=== PATIENT | male | born 1975 | race African-American/Black ===

== ENCOUNTER 2017-03-22 15:20 | Observation (INO) | payer MEDICAID ==
[2017-03-22] MEDS ORDERED: Metoprolol Tartrate 5 MG/5 ML SDV IVPUSH ONE (15:31)
[2017-03-22] MEDS ORDERED: Famotidine 20 MG/2 ML SDV IVPUSH ONE (15:31)
[2017-03-22] MEDS ORDERED: Sodium Chloride 0.9% 10 ML Syringe FLUSH PRN ×2 (15:31→18:32)
[2017-03-22] MEDS ORDERED: Aspirin 81 MG Tab.Chew CHEW ONE (15:31)
[2017-03-22] MEDS ORDERED: Ticagrelor 90 MG Tab PO ONE (15:31)
--- NOTE | 2017-03-22 15:31 | EDM.PDOC ---
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 heart Associated angina: with unstable angina Qualified Code(s): I25.110 - Atherosclerotic heart disease of [place] coronary artery with unstable angina pectoris COPD (chronic obstructive pulmonary disease) Qualifiers: COPD type: emphysema Emphysema type: panlobular Qualified Code(s): J43.1 - Panlobular emphysema - Problem List & Annotations (1) Chest pain SNOMED Code(s): 78664706 Code(s): R07.9 - CHEST PAIN, UNSPECIFIED Status: Acute Priority: High Current Visit: Yes Onset Date: ~03/22/17 Annotation/Comment:: Chest pain protocol initiated immediately upon the patient's arrival to the emergency room. Symptoms somewhat refractory to therapy with IV morphine required. Admit to observation status with initiation of standard rule out OR orders. Cardiology consultation depending on his clinical course. Note recent apparently negative outpatient Cardiolite stress test in November 2016 as above. Low threshold for possible heart catheterization secondary to his history of acute OR on 04/06/16. Nitro paste therapy initiated both for blood pressure control and cardiac prophylaxis Qualifiers: Chest pain type: other chest pain Qualified Code(s): R07.89 - Other chest pain; R07.8 - Other chest pain (2) Coronary artery disease SNOMED Code(s): 97484518 Code(s): I25.10 - ATHSCL HEART DISEASE OF [place] CORONARY ARTERY W/O ANG PCTRS Status: Chronic Priority: High Current Visit: Yes Onset Date: ~04/15 Annotation/Comment:: As above Qualifiers: Coronary Disease-Associated Artery/Lesion type: [place] artery [place] vs. transplanted heart: [place] heart Associated angina: with unstable angina Qualified Code(s): I25.110 - Atherosclerotic heart disease of [place] coronary artery with unstable angina pectoris (3) Hypertensive crisis SNOMED Code(s): 720981217 Code(s): I16.9 - HYPERTENSIVE CRISIS, UNSPECIFIED Status: Acute Priority : High Current Visit: Yes Onset Date: 03/22/17 Annotation/Comment:: Hypertensive crisis on arrival secondary to patient's medication noncompliance as above. Multiple doses of sublingual nitroglycerin, IV and oral Lopressor, IV hydralazine, and IV Normodyne required with improved blood pressure prior to admission. Sleep apnea is a likely component. Note positive family history for hemorrhagic CVA secondary to cerebral aneurysm as above. The patient was cautioned to keep his blood pressure under control with recommended MRA of the brain on an outpatient basis to rule out cerebral aneurysm secondary to his family history (4) COPD (chronic obstructive pulmonary disease) SNOMED Code(s): 47685631 Code(s): J44.9 - CHRONIC OBSTRUCTIVE PULMONARY DISEASE, UNSPECIFIED Status : Chronic Priority: Medium Current Visit: Yes Onset Date: ~03/22/17 Annotation/Comment:: COPD by chest x-ray with current probable bronchitic type symptoms and no evidence of pneumonia by chest x-ray. No previous PFTs with possible history of sleep apnea with apparent scheduled sleep study in one week by his history. Initiate IV Rocephin therapy for now with PFTs recommended once his cardiac status has been determined Qualifiers: COPD type: emphysema Emphysema type: panlobular Qualified Code(s): J43.1 - Panlobular emphysema (5) Caries SNOMED Code(s): 98757593 Code(s): K02.9 - DENTAL CARIES, UNSPECIFIED Status: Chronic Priority: Medium Current Visit: Yes Annotation/Comment:: Multiple caries as above. Follow-up with his dentist [place] advised. 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 CK index normal with mild change of his troponin I. Patient not on a statin with no direct evidence of rhabdomyolysis. Observe closely for now (7) Hyperuricemia SNOMED Code(s): 55380167 Code(s): E79.0 - HYPERURICEMIA W/O SIGNS OF INFLAM ARTHRIT AND TOPHACEOUS DIS Status: Acute Priority: Medium Current Visit: Yes Onset Date: Annotation/Comment:: Newly diagnosed with no previous history of gout attacks. Observe for now. Discharge patient on a heart healthy and uric acid diet with information to be provided at discharge (8) LFTs abnormal SNOMED Code(s): 569354637 Code(s): R79.89 - OTHER SPECIFIED ABNORMAL FINDINGS OF BLOOD CHEMISTRY Status: Acute Priority: Medium Current Visit: Yes Onset Date: 03/22/17 Annotation/Comment:: Mild LFTs elevation likely secondary to fatty liver. Lipid panel in the a.m. (9) Renal insufficiency SNOMED Code(s): 048148333, 681061136 Code(s): N28.9 - DISORDER OF KIDNEY AND URETER, UNSPECIFIED Status: Acute Priority: Medium Current Visit: Yes Onset Date: 03/22/17 Annotation/ Comment:: Newly diagnosed mild renal insufficiency. Observe for now (10) Tobacco abuse counseling SNOMED Code(s): 074174941, 843767666, 593503624 Code(s): Z71.6 - TOBACCO ABUSE COUNSELING Status: Chronic Priority: Medium Current Visit: Yes Annotation/Comment:: Tobacco cessation strongly encouraged with patient to be provided tobacco cessation information at time of discharge - Problem List Review Problem List Initiated/Reviewed/Updated: Yes - My Orders Last 24 Hours: My Active Orders 03/22/17 15:26 EKG Documentation Completion [RC] ASDIRECTED Oxygen Therapy, ED [RC] ASDIRECTED Chest 1V Frontal [CR] Stat Sodium Chloride 0.9% [Saline Flush] 10 ml FLUSH ASDIRECTED PRN Saline Lock Insert [OM.PC] Routine 03/22/17 15:31 Cardiac Monitoring [RC] . DIRECTED EKG Documentation Completion [RC] ASDIRECTED Oxygen Therapy, ED [RC] CONTINUOUS Peripheral IV Care [RC] . DIRECTED Pulse Oximetry [RC] CONTINUOUS Up With Assistance [RC] PFP Vital Signs [RC] PFP Sodium Chloride 0.9% [Saline Flush] 10 ml FLUSH ASDIRECTED PRN Obtain Past Medical Record [OM.PC] Urgent Peripheral IV Insertion Adult [OM.PC] Stat Resuscitation Status Stat 03/22/17 15:34 Nitroglycerin [Nitrostat] 0.4 mg SL ONETIME STA 03/22/17 16:00 Morphine 2 mg IVPUSH ONETIME ONE 03/22/17 17:00 Nitroglycerin [Nitro-Bid 2%] 0.5 gm TOP Q6H 03/22/17 Breakfast Nothing per Oral Now Diet [DIET] - Assessment/Plan Admission H&P: Please use this note as an admission H&P Last 24 Hours: My Active Orders 03/22/17 15:26 EKG Documentation Completion [RC] ASDIRECTED Oxygen Therapy, ED [RC] ASDIRECTED Chest 1V Frontal [CR] Stat Sodium Chloride 0.9% [Saline Flush] 10 ml FLUSH ASDIRECTED PRN Saline Lock Insert [OM.PC] Routine 03/22/17 15:31 Cardiac Monitoring [RC] . DIRECTED EKG Documentation Completion [RC] ASDIRECTED Oxygen Therapy, ED [RC] CONTINUOUS Peripheral IV Care [RC] . DIRECTED Pulse Oximetry [RC] CONTINUOUS Up With Assistance [RC] PFP Vital Signs [RC] PFP Sodium Chloride 0.9% [Saline Flush] 10 ml FLUSH ASDIRECTED PRN Obtain Past Medical Record [OM.PC] Urgent Peripheral IV Insertion Adult [OM.PC] Stat Resuscitation Status Stat 03/22/17 15:34 Nitroglycerin [Nitrostat] 0.4 mg SL ONETIME STA 03/22/17 16:00 Morphine 2 mg IVPUSH ONETIME ONE 03/22/17 17:00 Nitroglycerin [Nitro-Bid 2%] 0.5 gm TOP Q6H 03/22/17 Breakfast Nothing per Oral Now Diet [DIET] Assessment:: As above Plan: As above. Extensive precautions were given to the patient, who is in agreement with the treatment plan. The patient's condition is stable enough for observation status and general supervision.
[2017-03-22] MEDS ORDERED: Metoprolol Tartrate 50 MG Tab PO ONE (15:34)
[2017-03-22] MEDS: Nitroglycerin 0.4 MG Tab.SL SL STA ×2 (15:41→16:04)
[2017-03-22 15:59] LABS: CHLORIDE,CL 106 mmol/L (98-107); SODIUM,NA 140 mmol/L (136-145)
[2017-03-22] MEDS ORDERED: Nitroglycerin 0.4 MG Tab.SL SL ONE (15:59)
[2017-03-22] MEDS ORDERED: Morphine 10 MG/ML Syringe IVPUSH ONE (16:00)
[2017-03-22] MEDS ORDERED: Ondansetron 4 MG/2 ML SDV IVPUSH ONE (16:00)
[2017-03-22] MEDS: Sodium Chloride 0.9% 10 ML Syringe FLUSH PRN ×2 (16:06→17:33)
[2017-03-22] MEDS ORDERED: Labetalol 20 MG/4 ML Syringe IVPUSH ONE ×2 (16:15→16:58)
[2017-03-22] MEDS ORDERED: Nitroglycerin 2% Oint 1 GM UD Packet TOP SCH (17:00)
[2017-03-22] MEDS ORDERED: hydrALAZINE 20 MG/ML SDV IVPUSH ONE ×2 (17:28→21:36)
[2017-03-22] MEDS ORDERED: Temazepam 15 MG Cap PO PRN (18:32)
[2017-03-22] MEDS: hydrALAZINE 50 MG Tab PO SCH (19:52)
[2017-03-22] MEDS: Nicotine 21 MG/24 Hr Patch TRDERM SCH (20:59)
[2017-03-22] MEDS ORDERED: Nitroglycerin/D5W 25 MG/250 ML BOTTLE IV SCH (21:45)
[2017-03-22] MEDS: Ondansetron 4 MG/2 ML SDV IVPUSH PRN (22:14)
[2017-03-22] MEDS: Lisinopril 10 MG Tab PO SCH (22:15)
[2017-03-22] MEDS: Morphine 2 MG/ML Syringe IVPUSH PRN (22:17)
[2017-03-22] MEDS ORDERED: Gabapentin 300 MG Cap PO ONE (22:51)
[2017-03-23] MEDS: Morphine 2 MG/ML Syringe IVPUSH PRN (04:22)
[2017-03-23] MEDS: Ondansetron 4 MG/2 ML SDV IVPUSH PRN (04:22)
[2017-03-23] MEDS: Sodium Chloride 0.9% 10 ML Syringe FLUSH PRN ×2 (04:28→20:59)
[2017-03-23 07:52] LABS: CHLORIDE,CL 105 mmol/L (98-107); SODIUM,NA 139 mmol/L (136-145)
[2017-03-23] MEDS ORDERED: NIFEdipine 30 MG Tab.ER PO SCH (08:00)
[2017-03-23] MEDS: hydrALAZINE 50 MG Tab PO SCH ×2 (08:00→20:49)
[2017-03-23] MEDS: Gabapentin 300 MG Cap PO SCH ×3 (08:00→18:03)
[2017-03-23] MEDS: Methocarbamol 500 MG Tab PO SCH ×3 (08:01→18:03)
[2017-03-23] MEDS: Acetaminophen 325 MG Tab PO PRN ×2 (09:26→20:55)
[2017-03-23] MEDS ORDERED: hydrALAZINE 50 MG Tab PO ONE (09:36)
[2017-03-23] MEDS ORDERED: Aspirin 81 MG Tab.Chew PO ONE (09:37)
--- NOTE | 2017-03-23 10:15 | PCM.PN ---
- General Info Date of Service: 03/23/17 Admission Dx/Problem (Free Text): Chest pain. Hypertensive Crisis. Subjective Update: The patient reports chest pain resolved with nitroglycerin drip and no recurrence. Nursing reports blood pressure difficult to control overnight even on nitroglycerin drip and required multiple dose of IV Labetalol and IV Hydralazine in addition to oral metoprolol, oral hydralazine, and oral home medications Bystolic and Nimodipine. The patient complains of a mild headache this morning as well. - Review of Systems General: Reports: No Symptoms HEENT: Reports: no symptoms Pulmonary: Reports: other (Intermittent cough, improved from admission.) Cardiovascular: Reports: No Symptoms Gastrointestinal: Reports: No symptoms Genitourinary: Reports: no symptoms Musculoskeletal: Reports: no symptoms Skin: Reports: no symptoms Neurological: Reports: Headache (Mild) Psychiatric: Reports: no symptoms - Patient Data Vitals - most recent: Last Vital Signs Temp 36.8 C 03/23/17 10:00 Pulse 79 03/23/17 10:00 Resp 18 03/23/17 10:00 BP 172/106 H 03/23/17 10:00 Pulse Ox 100 03/23/17 10:00 Weight - most recent: 121.744 kg I&O - last 24 hours: Intake & Output 03/22/17 03/23/17 03/23/17 22:59 06:59 14:59 Intake Total 75 Balance 75 Lab Results last 24 hrs: Laboratory Results - last 24 hr 03/22/17 03/23/17 03/23/17 Range/Units 21:45 06:28 06:28 WBC 11.4 H (4.0-10.2) K/uL RBC 5.02 (4.33-5.41) M/uL Hgb 14.7 (13.1-16.8) g/dL Hct 42.5 (39.0-49.0) % MCV 84.7 (84.0-98.0) fL MCH 29.3 (28.2-33.3) pg MCHC 34.6 (31.7-36.0) g/dL RDW 13.1 (11.2-14.1) % Plt Count 226 (150-350) K/uL Neut % (Auto) 63.3 (45.0-80.0) % Lymph % (Auto) 24.3 (10.0-50.0) % [place] % (Auto) 10.6 (2.0-14.0) % Eos % (Auto) 1.4 (0.0-5.0) % Baso % (Auto) 0.4 (0.0-2.0) % Neut # (Auto) 7.20 H (1.40-7.00) K/uL Lymph # (Auto) 2.76 (0.50-3.50) K/uL Davidson # (Auto) 1.21 H (0.00-1.00) K/uL Eos # (Auto) 0.16 (0.00-0.50) K/uL Baso # (Auto) 0.05 (0.00-0.20) K/uL Sodium 139 (136-145) mmol/L Potassium 3.6 (3.5-5.1) mmol/L Chloride 105 (98-107) mmol/L Carbon Dioxide 23.7 (21.0-32.0) mmol/L BUN 11 (7-18) mg/dL Creatinine 1.16 (0.51-1.17) mg/dL Est Cr Clr Drug Dosing 90.12 mL/min Estimated GFR (MDRD) > 60 mL/min Glucose 130 H (74-106) mg/dL Hemoglobin A1c (4.3-5.7) % Calcium 9.0 (8.5-10.1) mg/dL Total Bilirubin 0.6 (0.2-1.0) mg/dL AST 31 (15-37) U/L ALT 45 (12-78) U/L Alkaline Phosphatase 103 (46-116) IU/L Creatine Kinase 839 H 642 H (26-308) U/L Creatine Kinase Index 0.3 0.3 (0.0-2.5) % CK-MB (CK-2) 2.20 2.00 (0.00-3.60) ng/mL Troponin I 0.028 0.035 (0.000-0.056) ng/mL Total Protein 7.2 (6.4-8.2) g/dL Albumin 3.9 (3.4-5.0) g/dL Triglycerides 137 (30-150) mg/dL Cholesterol 278 H (100-200) mg/dL LDL Cholesterol, Calc 212 H (0-100) mg/dL HDL Cholesterol 39 L (40-60) mg/dL 03/23/17 Range/Units 06:28 WBC (4.0-10.2) K/uL RBC (4.33-5.41) M/uL Hgb (13.1-16.8) g/dL Hct (39.0-49.0) % MCV (84.0-98.0) fL MCH (28.2-33.3) pg MCHC (31.7-36.0) g/dL RDW (11.2-14.1) % Plt Count (150-350) K/uL Neut % (Auto) (45.0-80.0) % Lymph % (Auto) (10.0-50.0) % [place] % (Auto) (2.0-14.0) % Eos % (Auto) (0.0-5.0) % Baso % (Auto) (0.0-2.0) % Neut # (Auto) (1.40-7.00) K/uL Lymph # (Auto) (0.50-3.50) K/uL [place] # (Auto) (0.00-1.00) K/uL Eos # (Auto) (0.00-0.50) K/uL Baso # (Auto) (0.00-0.20) K/uL Sodium (136-145) mmol/L Potassium (3.5-5.1) mmol/L Chloride (98-107) mmol/L Carbon Dioxide (21.0-32.0) mmol/L BUN (7-18) mg/dL Creatinine (0.51-1.17) mg/dL Est Cr Clr Drug Dosing mL/min Estimated GFR (MDRD) mL/min Glucose (74-106) mg/dL Hemoglobin A1c 6.1 H (4.3-5.7) % Calcium (8.5-10.1) mg/dL Total Bilirubin (0.2-1.0) mg/dL AST (15-37) U/L ALT (12-78) U/L Alkaline Phosphatase (46-116) IU/L Creatine Kinase (26-308) U/L Creatine Kinase Index (0.0-2.5) % CK-MB (CK-2) (0.00-3.60) ng/mL Troponin I (0.000-0.056) ng/mL Total Protein (6.4-8.2) g/dL Albumin (3.4-5.0) g/dL Triglycerides (30-150) mg/dL Cholesterol (100-200) mg/dL LDL Cholesterol, Calc (0-100) mg/dL HDL Cholesterol (40-60) mg/dL Med Orders - Current: Current Medications Acetaminophen (Tylenol) 650 mg PO Q4H PRN PRN Reason: Pain Last Admin: 03/23/17 09:26 Dose: 650 mg Aspirin (Aspirin) 81 mg PO DAILY ONE Stop: 03/24/17 08:01 Carvedilol (Coreg) 12.5 mg PO BIDM [facility] Gabapentin (Neurontin) 600 mg PO TID [facility] Last Admin: 03/23/17 08:00 Dose: 600 mg Hydralazine HCl (Apresoline) 50 mg PO Q12HR [facility] Nitroglycerin/Dextrose (Nitroglycerin 25 Mg/D5w 250 Ml) 25 mg in 250 mls @ 6 mls/hr IV TITRATE [facility] PRN Reason: 10 MCG/MIN Last Infusion: 03/23/17 01:15 Dose: 20 mcg/min, 12 mls/hr Lisinopril (Prinivil) 10 mg PO BEDTIME [facility] Last Admin: 03/22/17 22:15 Dose: 10 mg Methocarbamol (Robaxin) 750 mg PO TID [facility] Last Admin: 03/23/17 08:01 Dose: 750 mg Morphine Sulfate (Morphine) 2 mg IVPUSH ONETIME ONE Stop: 03/23/17 16:01 Last Admin: 03/22/17 16:05 Dose: 2 mg Morphine Sulfate (Morphine) 2 mg IVPUSH Q4H PRN PRN Reason: Pain (severe 7-10) Last Admin: 03/23/17 04:22 Dose: 2 mg Nicotine (Habitrol) 21 mg TRDERM BEDTIME [facility] Last Admin: 03/22/17 20:59 Dose: 21 mg Nitroglycerin (Nitrostat) 0.4 mg SL ONETIME STA Stop: 03/23/17 15:35 Last Admin: 03/22/17 15:41 Dose: 0.4 mg Ondansetron HCl (Zofran) 4 mg IVPUSH Q6H PRN PRN Reason: Nausea/Vomiting Last Admin: 03/23/17 04:22 Dose: 4 mg Sodium Chloride (Saline Flush) 10 ml FLUSH ASDIRECTED PRN PRN Reason: Keep Vein Open Last Admin: 03/23/17 04:28 Dose: 10 ml Sodium Chloride (Saline Flush) 10 ml FLUSH ASDIRECTED PRN PRN Reason: Keep Vein Open Sodium Chloride (Saline Flush) 10 ml FLUSH Q12HR PRN PRN Reason: Keep Vein Open Temazepam (Restoril) 15 mg PO 2000 PRN PRN Reason: Insomnia Last Admin: 03/22/17 23:44 Dose: 15 mg Discontinued Medications Aspirin (Aspirin) 324 mg CHEW ONETIME ONE Stop: 03/22/17 15:32 Last Admin: 03/22/17 15:38 Dose: 324 mg Aspirin (Aspirin) 81 mg PO ONETIME ONE Stop: 03/23/17 09:38 Famotidine (Pepcid) 40 mg IVPUSH ONETIME ONE Stop: 03/22/17 15:32 Last Admin: 03/22/17 15:39 Dose: 40 mg Gabapentin (Neurontin) 600 mg PO ONETIME ONE Stop: 03/22/17 22:52 Last Admin: 03/22/17 23:13 Dose: 600 mg Hydralazine HCl (Apresoline) 10 mg IVPUSH ONETIME ONE Stop: 03/22/17 17:29 Last Admin: 03/22/17 17:31 Dose: 10 mg Hydralazine HCl (Apresoline) 25 mg PO Q12HR [place] Last Admin: 03/23/17 08:00 Dose: 25 mg Hydralazine HCl (Apresoline) 10 mg IVPUSH ONETIME ONE Stop: 03/22/17 21:37 Last Admin: 03/22/17 22:14 Dose: 10 mg Hydralazine HCl (Apresoline) 25 mg PO ONETIME ONE Stop: 03/23/17 09:37 Labetalol HCl (Normodyne) 10 mg IVPUSH ONETIME ONE PRN Reason: Protocol Stop: 03/22/17 16:16 Last Admin: 03/22/17 16:19 Dose: 10 mg Labetalol HCl (Normodyne) 10 mg IVPUSH ONETIME ONE PRN Reason: Protocol Stop: 03/22/17 16:59 Last Admin: 03/22/17 17:13 Dose: 10 mg Metoprolol Tartrate (Lopressor) 2.5 mg IVPUSH ONETIME ONE Stop: 03/22/17 15:32 Last Admin: 03/22/17 15:39 Dose: 2.5 mg Metoprolol Tartrate (Lopressor) 25 mg PO ONETIME ONE Stop: 03/22/17 15:35 Last Admin: 03/22/17 15:38 Dose: 25 mg Nebivolol (Bystolic) mg PO BID [facility] Nebivolol (Bystolic) 10 mg PO BID [facility] Last Admin: 03/23/17 07:59 Dose: 10 mg Nifedipine (Procardia Xl) 30 mg PO DAILY [facility] Last Admin: 03/23/17 08:02 Dose: 30 mg Nitroglycerin (Nitrostat) 0.4 mg SL ONETIME ONE Stop: 03/22/17 16:00 Last Admin: 03/22/17 16:04 Dose: 0.4 mg Nitroglycerin (Nitro-Bid 2%) 0.5 gm TOP Q6H [facility] Last Admin: 03/22/17 17:13 Dose: 0.5 gm Ondansetron HCl (Zofran) 4 mg IVPUSH ONETIME ONE Stop: 03/22/17 16:01 Last Admin: 03/22/17 16:06 Dose: 4 mg Ticagrelor (Brilinta) 180 mg PO ONETIME ONE Stop: 03/22/17 15:32 Last Admin: 03/22/17 15:38 Dose: 180 mg - Exam General: alert, oriented HEENT: Pupils equal, Pupils reactive, EOMI, Mucous membr. moist/pink Neck: supple Lungs: Clear to auscultation, Normal respiratory effort Cardiovascular: Regular Rate, Regular Rhythm Abdomen: bowel sounds present, soft, no tenderness, no distension Back Exam: Normal Inspection, Full Range of Motion. No: CVA Tenderness (L), CVA Tenderness (R), Paraspinal Tenderness, Vertebral Tenderness Extremities: no edema Peripheral Pulses: 2+: Radial (L), Radial (R), Posterior Tibial (L), Posterior Tibial (R) Skin: warm, dry, intact Neurological: no new focal deficit Psy/Mental Status: alert, normal affect, normal mood - Problem List & Annotations (1) Hypertensive crisis SNOMED Code(s): 912091414 Code(s): I16.9 - HYPERTENSIVE CRISIS, UNSPECIFIED Status: Acute Priority : High Current Visit: Yes Onset Date: 03/22/17 Annotation/Comment:: Hypertensive crisis on arrival secondary to patient's medication noncompliance as above. Multiple doses of sublingual nitroglycerin, IV and oral Lopressor, IV hydralazine, and IV Normodyne required. Still poor control currently. (2) Chest pain SNOMED Code(s): 10690554 Code(s): R07.9 - CHEST PAIN, UNSPECIFIED Status: Acute Priority: High Current Visit: Yes Onset Date: ~03/22/17 Qualifiers: Chest pain type: other chest pain Qualified Code(s): R07.89 - Other chest pain; R07.8 - Other chest pain Annotation/Comment:: Cardiac enzymes negative and chest pain resolved with nitroglycerin drip. (3) Chronic hypertension SNOMED Code(s): 75672627 Code(s): I10 - ESSENTIAL (PRIMARY) HYPERTENSION Status: Acute Priority: [facility] Current Visit: Yes Annotation/Comment:: Noncompliance with medication regimen. (4) Hypercholesteremia SNOMED Code(s): 81427439 Code(s): E78.00 - PURE HYPERCHOLESTEROLEMIA, UNSPECIFIED Status: Acute Current Visit: Yes - Problem List Review Problem List Initiated/Reviewed/Updated: Yes - My Orders Last 24 Hours: My Active Orders 03/23/17 09:45 Carvedilol [Coreg] 12.5 mg PO BIDM 03/23/17 20:00 hydrALAZINE [Apresoline] 50 mg PO Q12HR 03/24/17 08:00 Aspirin 81 mg PO DAILY ONE - Plan Plan:: 1. Discontinue oral metoprolol, oral Bystolic, and oral nimodipine. 2. Add Coreg 12.5 mg PO BID. 3. Increase Hydralazine to 50 mg PO BID. 4. Wean Nitroglycerin drip to off. 5. Imdur 60 mg ER PO daily. 6. Aspirin 81 mg PO daily given cardiac history, smoker, and cardiac risk factors. 7. Called to discuss transfer with [facility] Dr. Noriega and [facility] Dr. Courtney who refuse to accept transfer at this time 8. Continue to follow serial cardiac enzymes and telemetry. 9. BRAD jasmine and Lovenox for DVT prophylaxis. 10. Incentive spirometry for pneumonia prophylaxis.
[2017-03-23] MEDS: Carvedilol 12.5 MG Tab PO SCH ×2 (10:26→18:02)
[2017-03-23] MEDS: Isosorbide Mononitrate 30 MG Tab.ER PO SCH (11:07)
[2017-03-23] MEDS: Nicotine 21 MG/24 Hr Patch TRDERM SCH (20:49)
[2017-03-23] MEDS: Lisinopril 10 MG Tab PO SCH (20:49)
[2017-03-24] MEDS: Gabapentin 300 MG Cap PO SCH ×2 (07:29→11:50)
[2017-03-24] MEDS: Methocarbamol 500 MG Tab PO SCH ×2 (07:29→11:50)
[2017-03-24] MEDS: Carvedilol 12.5 MG Tab PO SCH (07:30)
[2017-03-24] MEDS: Isosorbide Mononitrate 30 MG Tab.ER PO SCH (07:30)
[2017-03-24] MEDS: hydrALAZINE 50 MG Tab PO SCH (07:30)
[2017-03-24 07:45] LABS: CHLORIDE,CL 103 mmol/L (98-107); SODIUM,NA 137 mmol/L (136-145)
[2017-03-24] MEDS ORDERED: Aspirin 81 MG Tab.Chew PO SCH (08:00)
[2017-03-24] MEDS: Acetaminophen 325 MG Tab PO PRN (09:58)
[2017-03-24 12:01] VITALS: BP 130/81
--- NOTE | 2017-03-24 12:30 | PCM.DCSUM1 ---
Discharge Summary - Hospital Course Free Text/Narrative:: Admitted on 03/22/17 by previous provider with refractory chest pain and hypertensive crisis. Has had poor compliance with antihypertensive regimen. Given all his home prescriptions orally in addition to oral metoprolol, oral hydralazine, and multiple IV doses of labetalol, hydralazine, and was placed on a nitroglycerin drip. Chest pain resolved and no EKG/telemetry ST elevation or ischemia and serial cardiac enzymes. Adjusted regimen to oral meds including lisinopril 10 mg PO daily, Isosorbide mononitrate 30 mg ER, Coreg 12.5 mg PO BID , and Hydralazine 50 mg PO BID with good control of blood pressure. Will prescribe Lipitor 40 mg PO daily for hypercholesterolemia and will start oral aspirin 81 mg daily and is ready for discharge today. - Discharge Data Discharge Date: 03/24/17 Discharge Disposition: Home, Self-Care 01 Condition: Good - Discharge Diagnosis/Problem(s) (1) Hypertensive crisis SNOMED Code(s): 937486981 ICD Code: I16.9 - HYPERTENSIVE CRISIS, UNSPECIFIED Status: Acute Priority : High Current Visit: Yes Onset Date: 03/22/17 Problem Details: Blood pressure well-controlled on current regimen. Discussed with patient critical importance of compliance with medication regimen. (2) Chest pain SNOMED Code(s): 28006367 ICD Code: R07.9 - CHEST PAIN, UNSPECIFIED Status: Acute Priority: High Current Visit: Yes Onset Date: ~03/22/17 Problem Details: Resolved. Weaned off nitroglycerin drip and no chest pain with good control of blood pressure. No ST elevation or ischemic changes on EKG's or telemetry. Serial cardiac enzymes negative. Qualifiers: Chest pain type: other chest pain Qualified Code(s): R07.89 - Other chest pain; R07.8 - Other chest pain (3) Chronic hypertension SNOMED Code(s): 64435282 ICD Code: I10 - ESSENTIAL (PRIMARY) HYPERTENSION Status: Acute Priority: High Current Visit: Yes Problem Details: Noncompliance with previous medication regimen. Controlled on current regimen. Discussed importance of compliance with patient. (4) Hypercholesteremia SNOMED Code(s): 40738634 ICD Code: E78.00 - PURE HYPERCHOLESTEROLEMIA, UNSPECIFIED Status: Acute Current Visit: Yes Problem Details: Will prescribe Lipitor 40 mg PO daily. Follow up with PCP. - Patient Instructions Diet: Heart Healthy Diet Activity: As Tolerated Driving: May Drive Today Showering/Bathing: May Shower Notify Provider of: Increased Pain Other/Special Instructions: Return to ER with refractory chest pain, shortness of breath, headache, visual changes, speech difficulty, facial droop, focal weakness or numbness or tingling, or other emergent concerns. - Discharge Plan Prescriptions/Med Rec: hydrALAZINE [Apresoline] 50 mg PO Q12HR #60 tablet Carvedilol [Coreg] 12.5 mg PO BIDM #60 tablet Isosorbide Mononitrate [Isosorbide Mononitrate ER] 30 mg PO DAILY #30 tab.sr.24h Lisinopril [Prinivil] 10 mg PO DAILY #30 tablet Rosuvastatin Calcium 40 mg PO DAILY #30 tablet Home Medications: Home Meds Gabapentin [Gabapentin] 1 tab PO TID 03/22/17 [History] Methocarbamol [Robaxin] 1 tab PO TID 03/22/17 [History] NIFEdipine [Afeditab CR] 1 tab PO DAILY 03/22/17 [History] Nebivolol [Bystolic] 1 tab PO BID 03/22/17 [History] Ranitidine HCl [Zantac] 150 mg PO DAILY 03/22/17 [History] Carvedilol [Coreg] 12.5 mg PO BIDM #60 tablet 03/24/17 [Rx] Isosorbide Mononitrate [Isosorbide Mononitrate ER] 30 mg PO DAILY #30 tab.sr.24h 03/24/17 [Rx] Lisinopril [Prinivil] 10 mg PO DAILY #30 tablet 03/24/17 [Rx] Rosuvastatin Calcium 40 mg PO DAILY #30 tablet 03/24/17 [Rx] hydrALAZINE [Apresoline] 50 mg PO Q12HR #60 tablet 03/24/17 [Rx] Patient Handouts: Nonspecific Chest Pain, [id number] Forms: ED Department Discharge Referrals: Nydia Ham PA [Primary Care Provider] - - Discharge Summary/Plan Comment DC Time >30 min.: Yes - Patient Data Vitals - Most Recent: Last Vital Signs Temp 36.1 C 03/24/17 12:00 Pulse 85 03/24/17 12:00 Resp 18 03/24/17 12:00 BP 130/81 03/24/17 12:00 Pulse Ox 100 03/24/17 12:00 Weight - Most Recent: 122.062 kg I&O - Last 24 hours: Intake & Output 03/23/17 03/24/17 03/24/17 22:59 06:59 14:59 Intake Total 126 533 6594 Output Total 400 Balance 794 92 2779 Lab Results - Last 24 hrs: Laboratory Results - last 24 hr 03/24/17 03/24/17 Range/Units 07:00 07:00 WBC 10.7 H (4.0-10.2) K/uL RBC 4.96 (4.33-5.41) M/uL Hgb 14.4 (13.1-16.8) g/dL Hct 42.6 (39.0-49.0) % MCV 85.9 (84.0-98.0) fL MCH 29.0 (28.2-33.3) pg MCHC 33.8 (31.7-36.0) g/dL RDW 13.3 (11.2-14.1) % Plt Count 229 (150-350) K/uL Neut % (Auto) 57.8 (45.0-80.0) % Lymph % (Auto) 30.9 (10.0-50.0) % [place] % (Auto) 8.8 (2.0-14.0) % Eos % (Auto) 2.1 (0.0-5.0) % Baso % (Auto) 0.4 (0.0-2.0) % Neut # (Auto) 6.16 (1.40-7.00) K/uL Lymph # (Auto) 3.29 (0.50-3.50) K/uL [place] # (Auto) 0.94 (0.00-1.00) K/uL Eos # (Auto) 0.22 (0.00-0.50) K/uL Baso # (Auto) 0.04 (0.00-0.20) K/uL Sodium 137 (136-145) mmol/L Potassium 3.9 (3.5-5.1) mmol/L Chloride 103 (98-107) mmol/L Carbon Dioxide 26.6 (21.0-32.0) mmol/L BUN 11 (7-18) mg/dL Creatinine 1.32 H (0.51-1.17) mg/dL Est Cr Clr Drug Dosing 79.20 mL/min Estimated GFR (MDRD) > 60 mL/min Glucose 138 H (74-106) mg/dL Calcium 9.1 (8.5-10.1) mg/dL Total Bilirubin 0.5 (0.2-1.0) mg/dL AST 25 (15-37) U/L ALT 40 (12-78) U/L Alkaline Phosphatase 96 (46-116) IU/L Creatine Kinase Index TNP CK-MB (CK-2) 1.40 (0.00-3.60) ng/mL Troponin I 0.016 (0.000-0.056) ng/mL Total Protein 7.2 (6.4-8.2) g/dL Albumin 3.7 (3.4-5.0) g/dL Med Orders - Current: Current Medications Acetaminophen (Tylenol) 650 mg PO Q4H PRN PRN Reason: Pain Last Admin: 03/24/17 09:58 Dose: 650 mg Aspirin (Aspirin) 81 mg PO DAILY [facility] Last Admin: 03/24/17 07:30 Dose: 81 mg Carvedilol (Coreg) 12.5 mg PO BIDM [facility] Last Admin: 03/24/17 07:30 Dose: 12.5 mg Gabapentin (Neurontin) 600 mg PO TID [facility] Last Admin: 03/24/17 11:50 Dose: 600 mg Hydralazine HCl (Apresoline) 50 mg PO Q12HR [facility] Last Admin: 03/24/17 07:30 Dose: 50 mg Nitroglycerin/Dextrose (Nitroglycerin 25 Mg/D5w 250 Ml) 25 mg in 250 mls @ 6 mls/hr IV TITRATE [facility] PRN Reason: 10 MCG/MIN Last Infusion: 03/23/17 12:00 Dose: 3 mcg/min, 1.8 mls/hr Isosorbide Mononitrate (Imdur) 30 mg PO DAILY [facility] Last Admin: 03/24/17 07:30 Dose: 30 mg Lisinopril (Prinivil) 10 mg PO BEDTIME [facility] Last Admin: 03/23/17 20:49 Dose: 10 mg Methocarbamol (Robaxin) 750 mg PO TID [facility] Last Admin: 03/24/17 11:50 Dose: 750 mg Morphine Sulfate (Morphine) 2 mg IVPUSH Q4H PRN PRN Reason: Pain (severe 7-10) Last Admin: 03/23/17 04:22 Dose: 2 mg Nicotine (Habitrol) 21 mg TRDERM BEDTIME [facility] Last Admin: 03/23/17 20:49 Dose: 21 mg Ondansetron HCl (Zofran) 4 mg IVPUSH Q6H PRN PRN Reason: Nausea/Vomiting Last Admin: 03/23/17 04:22 Dose: 4 mg Sodium Chloride (Saline Flush) 10 ml FLUSH ASDIRECTED PRN PRN Reason: Keep Vein Open Last Admin: 03/23/17 20:59 Dose: 10 ml Sodium Chloride (Saline Flush) 10 ml FLUSH ASDIRECTED PRN PRN Reason: Keep Vein Open Sodium Chloride (Saline Flush) 10 ml FLUSH Q12HR PRN PRN Reason: Keep Vein Open Temazepam (Restoril) 15 mg PO 2000 PRN PRN Reason: Insomnia Last Admin: 03/22/17 23:44 Dose: 15 mg Discontinued Medications Aspirin (Aspirin) 324 mg CHEW ONETIME ONE Stop: 03/22/17 15:32 Last Admin: 03/22/17 15:38 Dose: 324 mg Aspirin (Aspirin) 81 mg PO ONETIME ONE Stop: 03/23/17 09:38 Last Admin: 03/23/17 10:27 Dose: 81 mg Famotidine (Pepcid) 40 mg IVPUSH ONETIME ONE Stop: 03/22/17 15:32 Last Admin: 03/22/17 15:39 Dose: 40 mg Gabapentin (Neurontin) 600 mg PO ONETIME ONE Stop: 03/22/17 22:52 Last Admin: 03/22/17 23:13 Dose: 600 mg Hydralazine HCl (Apresoline) 10 mg IVPUSH ONETIME ONE Stop: 03/22/17 17:29 Last Admin: 03/22/17 17:31 Dose: 10 mg Hydralazine HCl (Apresoline) 25 mg PO Q12HR [facility] Last Admin: 03/23/17 08:00 Dose: 25 mg Hydralazine HCl (Apresoline) 10 mg IVPUSH ONETIME ONE Stop: 03/22/17 21:37 Last Admin: 03/22/17 22:14 Dose: 10 mg Hydralazine HCl (Apresoline) 25 mg PO ONETIME ONE Stop: 03/23/17 09:37 Last Admin: 03/23/17 10:27 Dose: 25 mg Labetalol HCl (Normodyne) 10 mg IVPUSH ONETIME ONE PRN Reason: Protocol Stop: 03/22/17 16:16 Last Admin: 03/22/17 16:19 Dose: 10 mg Labetalol HCl (Normodyne) 10 mg IVPUSH ONETIME ONE PRN Reason: Protocol Stop: 03/22/17 16:59 Last Admin: 03/22/17 17:13 Dose: 10 mg Metoprolol Tartrate (Lopressor) 2.5 mg IVPUSH ONETIME ONE Stop: 03/22/17 15:32 Last Admin: 03/22/17 15:39 Dose: 2.5 mg Metoprolol Tartrate (Lopressor) 25 mg PO ONETIME ONE Stop: 03/22/17 15:35 Last Admin: 03/22/17 15:38 Dose: 25 mg Morphine Sulfate (Morphine) 2 mg IVPUSH ONETIME ONE Stop: 03/23/17 16:01 Last Admin: 03/22/17 16:05 Dose: 2 mg Nebivolol (Bystolic) mg PO BID [facility] Nebivolol (Bystolic) 10 mg PO BID [facility] Last Admin: 03/23/17 07:59 Dose: 10 mg Nifedipine (Procardia Xl) 30 mg PO DAILY [facility] Last Admin: 03/23/17 08:02 Dose: 30 mg Nitroglycerin (Nitrostat) 0.4 mg SL ONETIME STA Stop: 03/23/17 15:35 Last Admin: 03/22/17 15:41 Dose: 0.4 mg Nitroglycerin (Nitrostat) 0.4 mg SL ONETIME ONE Stop: 03/22/17 16:00 Last Admin: 03/22/17 16:04 Dose: 0.4 mg Nitroglycerin (Nitro-Bid 2%) 0.5 gm TOP Q6H [facility] Last Admin: 03/22/17 17:13 Dose: 0.5 gm Ondansetron HCl (Zofran) 4 mg IVPUSH ONETIME ONE Stop: 03/22/17 16:01 Last Admin: 03/22/17 16:06 Dose: 4 mg Ticagrelor (Brilinta) 180 mg PO ONETIME ONE Stop: 03/22/17 15:32 Last Admin: 03/22/17 15:38 Dose: 180 mg - Exam General: Reports: alert, oriented HEENT: Reports: Pupils equal, Pupils reactive, EOMI, Mucous membr. moist/pink Neck: Reports: supple Lungs: Reports: Clear to auscultation, Normal respiratory effort Cardiovascular: Reports: Regular Rate, Regular Rhythm Abdomen: Reports: bowel sounds present, soft, no tenderness, no distension Back Exam: Reports: Normal Inspection, Full Range of Motion. Denies: CVA Tenderness (L), CVA Tenderness (R), Paraspinal Tenderness, Vertebral Tenderness Extremities: Reports: no edema Skin: Reports: warm, dry, intact Wound/Incisions: Reports: healing well Neurological: Reports: no new focal deficit Psy/Mental Status: Reports: alert, normal affect, normal mood *Q Meaningful Use (DIS) - VTE *Q VTE Criteria *Q: - Stroke *Q Stroke Criteria *Q: - AMI *Q AMI Criteria *Q:
== END 2017-03-24 13:20 | disposition home or self-care (01) ==
LOC: LL.ED 15:20 → LL.MS 17:38
PROVIDERS: ADMIT Family Medicine; ATTEND Family Medicine
DX: I16.9 Hypertensive crisis, unspecified (principal); I10 Essential (primary) hypertension; R07.89 Other chest pain; E78.00 Pure hypercholesterolemia, unspecified; I25.110 Atherosclerotic heart disease of native coronary artery with unstable angina pectoris; I25.2 Old myocardial infarction; G47.30 Sleep apnea, unspecified; K21.9 Gastro-esophageal reflux disease without esophagitis; F17.210 Nicotine dependence, cigarettes, uncomplicated; J43.1 Panlobular emphysema; K02.9 Dental caries, unspecified; R74.8 Abnormal levels of other serum enzymes; E79.0 Hyperuricemia without signs of inflammatory arthritis and tophaceous disease; N28.9 Disorder of kidney and ureter, unspecified; Z98.818 Other dental procedure status; Z98.890 Other specified postprocedural states; Z79.899 Other long term (current) drug therapy
CPT/HCPCS: 36415; 71010; 80053; 80061; 82550; 82553; 83036; 83605; 83735; 83880; 84443; 84484; 84550; 85025; 85379; 85610; 85730; 93005; 94761; 96374; 96375; 96376; 99285; A9270; J0360; J2270; J2405; J7050; 96365; 96366; G0378; J3490; S0028